=== PATIENT | female | born 1985 | race Caucasian/White ===

== ENCOUNTER 2021-08-23 11:30 | Outpatient (RCR) | payer OTHER, SELFPAY ==
--- NOTE | 2021-08-16 14:13 | HP.OTEVAL_ITS ---
Patient's Visit Information ELVIRA FAJARDO is a 36 year old F, referred to Occupational Therapy by ARIE SLAUGHTER, with a diagnosis of scar tissue of left breast. Date of Evaluation: 08/06/21 Occupational Therapist: Kate Leigh, OTR/Boni, CHT - Subjective This 36 year old female was seen for OT eval with dx of scar of left breast tissue. pt states after having implants placed about 4 years later needed removal and have implants placed under the muscles belly. pt had sx having implantation under muscle belly- 2020. pt was instructed by her dr. pt in scar mtg to prevent scar adhesions-. pt states she does the scar massage more than 2x a day-. pt states she continues to struggle with discomfort not real pain- and has noticed a pucker in the left breast - Pain breast pain 2 - Goals Goal:Daily scar massage when approriate: Yes Goal:Decrease scar hypersensitivity: Yes - Rehabilitation General Assessment: pt demo with hypertrophic scar of left breast tissue causing soreness and noted puckering of skin indicating scar adhesions-. therapy will perform myofascial release hue. scar mtg- use of scar gel and scar mobilization hue. to decrease scar adhesions. Today therapists ed. pt on stretching- scar development and scar mtg- pt demo understanding- and agree to POC. Rehabilitation Potential: Good - Anticipated Interventions A/AAROM/PROM, Strengthening, Scar Care, Modalities, Home Program - Visit Plan Frequency: 1x/Week Duration: 6 Weeks TEXT: Thank you for the opportunity to evaluate your patient. For Medicare and Medicare HMO plans, please review the plan of care and approve it. It will need to be FAXED BACK to us at [phone] for Medicare purposes. Please let me know if there are questions or concerns regarding this plan of care. Physician Signature: Date:
--- NOTE | 2022-02-05 13:40 | HP.OT.NRP ---
ELVIRA Plata CHAS was seen in my office for initial evaluation on 08/06/21. The following Plan of Care was established for this patient: Initial Frequency: 1x/Week Initial Duration: 6 Weeks Plan: pt to cont with scar mtg. call Anticipated Interventions: A/AAROM/PROM, Strengthening, Scar Care, Modalities, Home Program This patient was last seen in our office 08/23/21. Pertinent comments regarding their Occupational therapy will appear below: pt was seen for 3 visits- 2 no show apts- due to time lapse in services pt d/c. At this point I will be discontinuing this patient from occupational therapy. I would be happy to see this patient again in the future if found appropriate by the physician. Thank you! Kate Leigh, OTR/L, CHT
== END 2021-08-23 19:00 | disposition home or self-care (01) ==
LOC: OT 11:30
DX: L76.34 Postprocedural seroma of skin and subcutaneous tissue following other procedure (principal); R52 Pain, unspecified
CPT/HCPCS: 97110; 97140; 97166; 97530

== ENCOUNTER → 2021-09-18 | Outpatient (CLI) | payer OTHER, MEDICAID, SELFPAY ==
[2021-09-18 12:24] LABS: AST(SGOT) 15 U/L (15-37); Alanine Aminotransfer ALT/SGPT 21 U/L (13-56); Cholesterol 174 mg/dL (200); High Density Lipoprotein 49 mg/dL; Triglycerides 50 mg/dL; Very Low Density Lipoprotein 10 mg/dL (5-40)
== END | disposition home or self-care (01) ==
LOC: MTLAB 10:14
PROVIDERS: Referring Provider Physician Assistant Medical; Visit Provider Physician Assistant Medical
DX: L70.0 Acne vulgaris (principal); Z79.899 Other long term (current) drug therapy
CPT/HCPCS: 36415; 80061; 84450; 84460

== ENCOUNTER 2022-03-19 11:01 | Emergency (ER) | payer OTHER, MEDICAID, SELFPAY ==
[2022-03-19 11:02] VITALS: BP 148/86; PULSE 61; RESP 18; TEMP 36; O2SAT 98; BMI 29.7
--- NOTE | 2022-03-19 11:12 | EKG12_ITS ---
Test Reason : CP Blood Pressure : / mmHG Vent. Rate : 063 BPM Atrial Rate : 063 BPM P-R Int : 176 ms QRS Dur : 078 ms QT Int : 404 ms P-R-T Axes : 040 029 048 degrees QTc Int : 413 ms Normal sinus rhythm Normal ECG Confirmed by GUILHERME VILLAREAL, VIPUL ([id number]), publication editor SHASHA MA ([id number]) on 03/20/2022 2:39:55 PM Referred By: SUSAN Confirmed By:VIPUL VANEGAS MD
--- NOTE | 2022-03-19 11:14 | EDS_ITS ---
HPI History of Present Illness Chief Complaint: Chest Pain Detail of Chief Complaint: Dull deep central chest pain Informant: patient Onset/Context/Timing Onset: Yesterday (Last evening and lasted for hours) and Hours (While shopping) Activity at onset: sudden Timing: Intermittent (Hours and just started) Quality: Positive for - (Deep ache) Location: Substernal Current Severity: Mild Maximum Severity: Moderate Worsened By: Nothing Relieved By: Nothing Associated Symptoms: Positive for Dyspnea and - (88 through to her back); Negative for Nausea, Vomiting, Diaphoresis, Cough, Fever, Lightheadedness, Acid Reflux or Palpitations Narrative Narrative: Patient is a 36-year-old woman with history of mitral prolapse who presents with deep dull central chest pain that radiates to her back. She does have endorse intolerance to all foods. She denies history of gallbladder problems. She has history of peptic ulcers, GERD or reflux. She denies history of hiatal hernia. She denies black or maroon-colored stool. She has no history of VTE and has no risk factors. She denies leg pain, swelling or discoloration. She has had no recent viral infection. Prior Similar Symptoms: Yes (Unknown cause) Recent Illness/Hospitalization: No CVD Risk Factors: Negative for Hypertension, Diabetes, Hypercholesterolemia, Family History 1' </=55 or Smoking PE Risk Factors: Negative for Recent Travel/Surgery, Recent Immobilization, Prior DVT or PE, Cancer or OCP + Smoking + >/=35 TAD Risk Factors: Negative for Marfan's Syndrome, Hypertension or Family History PFSH PFSH Medical History no medical history Home Medications NK 03/19/22 [History Last Taken Unknown] Allergy/AdvReac Type Severity Reaction Status Date / Time codeine Allergy Shortness Verified 03/19/22 11:01 of breath Social History (Updated 03/19/22 @ 11:[address] Francisco Ramirez MD) household members: spouse Smoking Status: Former smoker alcohol intake: current alcohol intake frequency: holidays/special occasions only substance use type: does not use ROS ROS ED Constitutional Constitutional ED: Denies chills, fever(s), subjective, sweats or weight loss Eyes Eyes: Reports none; Denies blurry vision, change in vision or diplopia ENT ENT ED: Denies ear pain, rhinorrhea or sore throat Cardiovascular Cardiovascular: Reports as per HPI; Denies orthopnea or paroxysmal nocturnal dyspnea Respiratory/Chest Respiratory/Chest: Reports dyspnea; Denies cough, dyspnea on exertion, orthopnea or paroxysmal nocturnal dyspnea Gastrointestinal Gastrointestinal: Denies abdominal pain, diarrhea, melena, nausea or vomiting Genitourinary Genitourinary ED: Denies dysuria, hematuria or urinary frequency Musculoskeletal Musculoskeletal: Reports back pain; Denies arthralgias, myalgias or neck pain Integumentary Denies abscess, Abrasions or rash Neurologic Neurologic: Denies headache(s), paresthesias or weakness Hematologic/Lymphatic Hematologic/Lymphatic: Denies easy bleeding or easy bruising EXAM Physical Exam Const Vital Signs: 03/19/22 11:02 Temperature 96.8 F L Temperature Source Temporal Pulse Rate 61 Respiratory Rate 18 Blood Pressure 148/86 H Blood Pressure Mean 106 Pulse Ox 98 Oxygen Delivery Method Room Air Positive well nourished and well developed General Appearance ED: well developed and NAD; Negative for pallor HEENT Reports moist mucous membranes HEENT Narrative: Ears normal. Nares patent. Mucosa moist. normocephalic and atraumatic Eyes PERRL and EOMs intact bilaterally General Eye ED: Negative for pale conjunctiva or scleral icterus Neck no lymphadenopathy, supple and no JVD Resp normal respiratory effort and clear to auscultation bilaterally Cardio regular rate, regular rhythm, S1 normal heart sound, S2 normal heart sound and no murmurs Peripheral Pulses: pulses 2+ throughout GI normal to inspection, nondistended, normoactive bowel sounds, soft to palpation, non-tender, non-distended and no masses; Negative for hepatosplenomegaly Extremity normal to inspection General Extremety ED: Negative for edema or pulses abnormal General Extremity: Negative for edema or pulses abnormal Neuro oriented x3 and no sensory deficits noted Sensorium / Orientation: awake Motor Exam: strength 5/5 throughout Psych mental status grossly normal Skin no rashes or lesions noted and no wounds General Skin Exam: Negative for pallor or other MDM MDM MDM Narrative Medical decision making narrative: Differential diagnosis be cardiac versus noncardiac. Need to consider GERD, chest pain due to mitral prolapse, doubt cardiac ischemia. Patient is PERC negative and reason why D-dimer was not obtained. Because patient had pain for hours last evening and the fact that she is a 36-year-old woman may have an atypical presentation a troponin was obtained. Lab Data Attestation: I reviewed the patient's lab results. Lab results narrative: With hours of pain yesterday and a troponin less than 7 negative predictive value 100%. Therefore will discharge to home. Labs: Laboratory Results - last 24 hr 03/19/22 11:20 Troponin I High Sens 3 Radiography Chest X-Ray - ED: 2 View and Read by ED Physician (3 view chest x-ray independently reviewed by me at 1137 as negative. Cardiac silhouette and size normal. Lung parenchyma normal. Perihilar region normal. Osseous structures normal.) Diagnostic Testing: Clinical Impression(s) from Imaging Studies Chest X-Ray 03/19/22 11:25 IMPRESSION: Normal x-ray examination of the chest. Electronically Signed: Darvin Gómez MD at 11:42 EST , EKG Initial EKG: Attestation: I personally reviewed and interpreted this EKG as follows: Interpretation: Sinus Rhythm (With pain EKG normal. Rate is 63. IA interval 176 ms. QS duration 70 ms. QT duration 404 ms. [place] is normal.) Discharge Plan Triage Chief Complaint: Chest Pain ED Provider: Francisco Ramirez Dx/Rx/DC Orders Clinical Impression: Central chest pain, Mitral valve prolapse Instructions: ED Chest Pain, Noncardiac, ED Mitral Valve Prolapse Prescriptions: No Action NK Primary Care Provider: Han Ornelas Referrals: Han Ornelas MD [Primary Care Provider] - As Needed Care Physician,No Primary [Non-Staff] - Disposition Disposition: Home, Self Care
--- NOTE | 2022-03-19 11:25 | RAD_ITS ---
STUDY: X-RAY CHEST REASON FOR EXAM: Female, 36 years old. Central chest pain and shortness of breath TECHNIQUE: PA and lateral views of the chest. COMPARISON: 09/06/2016 FINDINGS: EKG leads overlie the chest The lungs are clear and expanded. There is no demonstrated pleural abnormality. Normal size heart. Normal mediastinum and karen. Normal visualized pulmonary arteries. Normal visualized aortic arch and descending thoracic aorta. Normal visualized thoracic spine. Normal visualized ribs, clavicles, and shoulders. There is no demonstrated abnormality of the visualized soft tissue structures of the upper abdomen. RAD/Chest PA and Lateral IMPRESSION: Normal x-ray examination of the chest. Electronically Signed: Darvin Gómez MD at 11:42 EST ,
[2022-03-19 11:46] LABS: Troponin-I HS 3 pg/mL (3.0-54.0)
== END 2022-03-19 13:56 | disposition home or self-care (01) ==
PROVIDERS: Emergency Provider Emergency Medicine; PCP Family Medicine; Visit Provider Emergency Medicine
DX: R07.89 Other chest pain (principal); I34.1 Nonrheumatic mitral (valve) prolapse; Z87.891 Personal history of nicotine dependence
CPT/HCPCS: 71046; 84484; 93005; 99283